=== PATIENT | female | born 1950 | race Caucasian/White ===

== ENCOUNTER 2021-01-12 07:57 | Outpatient (CLI) | payer MEDICARE, OTHER, SELFPAY ==
--- NOTE | 2021-01-12 08:02 | MR_ITS ---
WS: [id number] MRI BRAIN WITH AND WITHOUT CONTRAST HISTORY: Always tired, chronic NECK PAIN;ARTHRALGIA;MYALGIA;MEMORY LOSS COMPARISON: None available. TECHNIQUE: Multiplanar imaging performed through the brain with MultiHance 11 ml's IV. No acute infarcts are seen. Kinsey-white matter differentiation is well preserved. There are a few scat tered T2 and FLAIR signal hyperintensities. No prior infarcts. There is only very mild volume loss an d atrophy. No signal abnormality along the corpus callosum. No susceptibility artifacts or prior lacunar infarcts. Ventricles and extra-axial spaces are normal. Clivus and pituitary gland are normal. Visualized posterior fossa and brainstem are also normal. Postcontrast images are negative for masses or vascular malformations. Small caliber distal RIGHT vladislav tebral artery but it is patent. Bilateral M1 and A1 segments are small caliber but they are patent. N o aneurysms. Dural venous sinuses are normal. Paranasal sinuses: Well aerated with no significant disease. Mastoid air cells: Normal. Calvarium and scalp: Normal. MR/MR head wo/w con [id number] IMPRESSION: 1. No acute infarct or enhancing mass. 2. Mild chronic microvascular ischemic disease with no prior large territory i nfarct. 3. Mild atherosclerosis involving the M1 and A1 segments bilaterally. No steno sis or aneurysm.
[2021-01-12 09:16] LABS: Blood Urea Nitrogen 12 mg/dL (8-23)
[2021-01-12] MEDS: gadobenate dimeglumine 20 mL vial IV (10:19)
== END 2021-01-12 07:58 | disposition home or self-care (01) ==
PROVIDERS: Radiology Diagnostic Radiology; PCP Nurse Practitioner Family; Visit Provider Nurse Practitioner Family
DX: M54.2 Cervicalgia (principal); R53.83 Other fatigue; M25.50 Pain in unspecified joint; I67.82 Cerebral ischemia
CPT/HCPCS: 70553; 72156; 72157; 82565; 84520; A9577

== ENCOUNTER 2021-01-31 08:34 | Outpatient (CLI) | payer MEDICARE, OTHER, SELFPAY ==
--- NOTE | 2021-01-31 08:39 | MR_ITS ---
WS: [id number] MRI THORACIC SPINE with and without contrast. HISTORY: CHRONIC NECK PAIN;ARTHRALGIA;MYALGIA;MEMORY LOSS COMPARISON: None available. TECHNIQUE: Multiplanar sequences are performed in sagittal and axial planes. With and without contras t. Moderate increase in thoracic kyphosis centered at T5. Mild disc space narrowing and desiccation thro ughout the thoracic spine. There is an ovoid lesion in the posterior T7 vertebral body. Nearly isoint ense on the T1 sequence to the remaining vertebral body but increased on the T2 sequences and there i s some enhancement. This lesion measures 8 mm in diameter. No signal abnormalities within the cord. T here is no enhancement or demyelination. No atrophy or enlargement. T1-2: Mild bilateral facet arthritis. T2-3: Normal. T3-4: Normal. T4-5: Normal. T5-6: Normal. T6-7: Normal. T7-8: Normal. T8-9: Mild RIGHT foraminal narrowing due to facet arthritis. Small osteophyte from the posterior LEF T lateral T8 vertebral body encroaches towards the thecal sac with no cord contact. T9-10: Mild bilateral facet arthritis. T10-11: Normal. T11-12: Normal. There are several small cystic areas within the liver which do not enhance as visualized on the postc ontrast sequences. MR/MR thoracic spine wo/w [id number] IMPRESSION: 1. No demyelinating lesions within the thoracic cord. 2. Indeterminate T7 vertebral body lesion. This may be an atypical hemangioma but early metastatic bone disease is not excluded. Recommend follow-up bone sca n imaging. 3. No high-grade stenoses throughout the thoracic spine. 4. Hepatic cysts.
--- NOTE | 2021-01-31 08:39 | MR_ITS ---
WS: [id number] MRI CERVICAL SPINE with and without contrast. HISTORY: CHRONIC NECK PAIN, ARTHRALGIAS, myalgias and memory LOSS COMPARISON: None available. Technique: Multiplanar, multisequence pre and postcontrast imaging of the cervical spine. Anterior cervical fusion extends from C4 to C6. Interbody spacers at C4-5 and C5-6. The alignment is normal with very mild straightening at the C4-5 level. Signal within the cervical cord is normal. Visualized posterior fossa is unremarkable. Craniocervical junction, C1 and C2 relationship, odontoid process and soft tissues are normal. C2-C3: No stenosis. C3-C4: Mild osteophytic ridging and a small central disc protrusion. No significant stenosis. C4-C5: Very slight osteophytic ridging. CSF still surrounds the cord. No significant stenosis. C5-C6: Moderate osteophytic ridging. Slightly greater into the LEFT foramen. There is an osteophyte i n the LEFT foramen causing a mild stenosis and displacement of the exiting nerve roots. Very mild enc roachment upon the ventral thecal sac. C6-C7: Diffuse annular disc bulging with a central to RIGHT paracentral disc protrusion. Moderate-siz ed disc osteophyte complexes and the foramen and ligamentum flavum hypertrophy posteriorly. There is mild central stenosis. Moderate LEFT and mild RIGHT foraminal stenosis. C7-T1: Normal. No enhancing masses. No evidence for discitis or osteomyelitis. MR/MR cervical spine wo/w [id number] IMPRESSION: 1. Status post anterior cervical fusion with interbody spacers from C4 to C6. 2. Mild central stenosis at C6-7 with moderate LEFT and mild RIGHT foraminal s tenosis. 3. LEFT foraminal osteophyte at C5-6 causing mild stenosis. 4. No discitis or osteomyelitis.
[2021-01-31] MEDS: gadobenate dimeglumine 20 mL vial IV (09:52)
== END 2021-01-31 08:35 | disposition home or self-care (01) ==
LOC: RADSHAW 08:38
PROVIDERS: PCP Nurse Practitioner Family; Visit Provider Nurse Practitioner Family
DX: M54.2 Cervicalgia (principal); M25.50 Pain in unspecified joint; M79.10 Myalgia, unspecified site; R41.3 Other amnesia; K76.89 Other specified diseases of liver; M43.22 Fusion of spine, cervical region; M25.78 Osteophyte, vertebrae; M48.02 Spinal stenosis, cervical region
CPT/HCPCS: 72156; 72157; A9577